=== PATIENT | male | born 2000 | race Caucasian/White ===

== ENCOUNTER 2021-08-03 10:21 | Inpatient (IN) | payer MEDICAID ==
[2021-08-03 10:49] LABS: Basophils % (A) 0 %; Eosinophils # (A) 0.1 k/uL (0-0.7); Eosinophils % (A) 2 %; HCT 44.6 % (39.0-53.0); HGB 15.2 gm/dL (13.0-17.5); Lymphocytes # (A) 1.1 k/uL (1.0-4.8); Lymphocytes % (A) 15 %; MCV 88.1 fL (80.0-100.0); Mean Platelet Volume 7.7; Monocytes # (A) 0.4 k/uL (0-1.0); Monocytes % (A) 5 %; Neutrophils # (A) 5.8 k/uL (1.3-7.7); Neutrophils % (A) 77 %; Platelet Count 247 k/uL (150-450); RBC 5.06 m/uL (4.30-5.90); RDW 12.8 % (11.5-15.5); WBC 7.6 k/uL (3.8-10.6)
[2021-08-03 11:00] LABS: ALT 16 U/L (4-49); AST 33 U/L (17-59); African American GFR (CKD) >90 (>60 ml/min/1.73 sqM); Albumin 5.2 g/dL (3.5-5.0); Alkaline Phosphatase 57 U/L (38-126); Anion Gap 14 mmol/L; Blood Urea Nitrogen 12 mg/dL (9-20); Calcium 9.9 mg/dL (8.4-10.2); Carbon Dioxide 20 mmol/L (22-30); Chloride 103 mmol/L (98-107); Glucose 117 mg/dL (74-99); Non-African American GFR(CKD) >90 (>60 ml/min/1.73 sqM); Potassium 3.9 mmol/L (3.5-5.1); Sodium 137 mmol/L (137-145); Total Bilirubin 0.9 mg/dL (0.2-1.3); Total Protein 8.8 g/dL (6.3-8.2)
[2021-08-03 11:08] LABS: Amphetamine Screen,Urine Not Detected (NotDetected); Barbiturate Screen,Urine Not Detected (NotDetected); Benzodiazepines Screen,Urine Not Detected (NotDetected); Cocaine Screen,Urine Not Detected (NotDetected); Methadone Screen, Urine Not Detected (NotDetected); Opiate Screen,Urine Detected (NotDetected); Oxycodone Screen, Urine Not Detected (NotDetected); Phencyclidine Screen,Urine Not Detected (NotDetected); Tricyclic Antidepressant,Urine Not Detected (NotDetected); Urn Cannabinoid Scrn Detected (NotDetected)
[2021-08-03 11:11] LABS: Acetaminophen <10.0 ug/mL; Salicylate <1.0 mg/dL
--- NOTE | 2021-08-03 11:20 | ED ---
Psych HPI - General Chief Complaint: Psychiatric Symptoms Stated Complaint: Mental health eval Time Seen by Provider: 08/03/21 10:22 Source: patient, RN notes reviewed Mode of arrival: EMS - History of Present Illness Initial Comments: 21-year-old male presents emergency department for psychiatric evaluation. Patient states that she is very depressed, suicidal. Patient did attempt to overdose on Saturday and which she states that he took partially 15 [place] and drink some alcohol on Saturday. Patient experienced vomiting, stomach. Patient states that has resolved. Patient states he still depressed, suicidal does admit to marijuana use. Patient denies any chest pain shortness breath. Shows normal a cough and cold like symptoms. - Related Data Allergies Allergy/AdvReac Type Severity Reaction Status Date / Time No Known Allergies Allergy Verified 08/03/21 10:33 Review of Systems ROS Statement: Those systems with pertinent positive or pertinent negative responses have been documented in the HPI. ROS Other: All systems not noted in ROS Statement are negative. Past Medical History Past Medical History: No Reported History History of Any Multi-Drug Resistant Organisms: None Reported Past Surgical History: No Surgical Hx Reported Past Psychological History: No Psychological Hx Reported Smoking Status: Former smoker Past Alcohol Use History: Occasional Past Drug Use History: Marijuana General Exam Limitations: no limitations General appearance: alert, in no apparent distress Head exam: Present: atraumatic, normocephalic, normal inspection Eye exam: Present: normal appearance, PERRL, EOMI. Absent: scleral icterus, conjunctival injection, periorbital swelling ENT exam: Present: normal exam, normal oropharynx, mucous membranes moist Neck exam: Present: normal inspection, full ROM. Absent: tenderness, meningismus, lymphadenopathy Respiratory exam: Present: normal lung sounds bilaterally. Absent: respiratory distress, wheezes, rales, rhonchi, stridor Cardiovascular Exam: Present: normal rhythm, tachycardia, normal heart sounds. Absent: systolic murmur, diastolic murmur, rubs, gallop, clicks GI/Abdominal exam: Present: soft, normal bowel sounds. Absent: distended, tenderness, guarding, rebound, rigid Neurological exam: Present: alert Psychiatric exam: Present: depressed Course Vital Signs 08/03/21 08/03/21 10:29 11:30 Temperature 98.1 F Pulse Rate 109 H Respiratory 16 18 Rate Blood Pressure 171/93 O2 Sat by Pulse 97 Oximetry Medical Decision Making - Medical Decision Making Patient evaluated by EPS will be admitted for psychiatric treatment. - Lab Data Result diagrams: 08/03/21 10:38 08/03/21 10:38 Lab Results 08/03/21 08/03/21 08/03/21 Range/Units 10:38 10:38 10:38 WBC 7.6 (3.8-10.6) k/uL RBC 5.06 (4.30-5.90) m/uL Hgb 15.2 (13.0-17.5) gm/dL Hct 44.6 (39.0-53.0) % MCV 88.1 (80.0-100.0) fL MCH 30.0 (25.0-35.0) pg MCHC 34.0 (31.0-37.0) g/dL RDW 12.8 (11.5-15.5) % Plt Count 247 (150-450) k/uL MPV 7.7 Neutrophils % 77 % Lymphocytes % 15 % Monocytes % 5 % Eosinophils % 2 % Basophils % 0 % Neutrophils # 5.8 (1.3-7.7) k/uL Lymphocytes # 1.1 (1.0-4.8) k/uL Monocytes # 0.4 (0-1.0) k/uL Eosinophils # 0.1 (0-0.7) k/uL Basophils # 0.0 (0-0.2) k/uL Sodium 137 (137-145) mmol/L Potassium 3.9 (3.5-5.1) mmol/L Chloride 103 (98-107) mmol/L Carbon Dioxide 20 L (22-30) mmol/L Anion Gap 14 mmol/L BUN 12 (9-20) mg/dL Creatinine 1.13 (0.66-1.25) mg/dL Est GFR (CKD-EPI)AfAm >90 (>60 ml/min/1.73 sqM) Est GFR (CKD-EPI)NonAf >90 (>60 ml/min/1.73 sqM) Glucose 117 H (74-99) mg/dL Calcium 9.9 (8.4-10.2) mg/dL Total Bilirubin 0.9 (0.2-1.3) mg/dL AST 33 (17-59) U/L ALT 16 (4-49) U/L Alkaline Phosphatase 57 (38-126) U/L Total Protein 8.8 H (6.3-8.2) g/dL Albumin 5.2 H (3.5-5.0) g/dL Salicylates <1.0 mg/dL Urine Opiates Screen Detected H (NotDetected) Ur Oxycodone Screen Not Detected (NotDetected) Urine Methadone Screen Not Detected (NotDetected) Ur Propoxyphene Screen Not Detected (NotDetected) Acetaminophen <10.0 ug/mL Ur Barbiturates Screen Not Detected (NotDetected) U Tricyclic Antidepress Not Detected (NotDetected) Ur Phencyclidine Scrn Not Detected (NotDetected) Ur Amphetamines Screen Not Detected (NotDetected) U Methamphetamines Scrn Not Detected (NotDetected) U Benzodiazepines Scrn Not Detected (NotDetected) Urine Cocaine Screen Not Detected (NotDetected) U Marijuana (THC) Screen Detected H (NotDetected) Disposition Clinical Impression: Depression, Suicidal ideation Disposition: TRANSFER TO PSYCH HOSP/UNIT Referrals: None,Stated [Primary Care Provider] - 1-2 days
[2021-08-03 11:34] VITALS: RESP 18
[2021-08-03] MEDS ORDERED: LORazepam 1 MG TAB PO PRN (14:58)
[2021-08-03] MEDS ORDERED: HALOPERIDOL LACTATE 5 MG/ML 1 ML VIAL IM PRN (14:58)
[2021-08-03] MEDS ORDERED: MAGNESIUM HYDROXIDE 2,400 MG/10 ML CUP PO PRN (14:58)
[2021-08-03] MEDS ORDERED: MAG HYDROX/AL HYDROX/SIMETH 30 ML CUP PO PRN (14:58)
[2021-08-03] MEDS ORDERED: haloperidoL 5 MG TAB PO PRN (15:02)
[2021-08-03] MEDS ORDERED: LORazepam 2 MG/ML INJ IM PRN (15:02)
[2021-08-03] MEDS ORDERED: IBUPROFEN 600 MG TAB PO PRN (15:03)
--- NOTE | 2021-08-04 03:55 | P.CONS ---
History of Present Illness - Reason for Consult Consult date: 08/04/21 - History of Present Illness The patient is a 21-year-old male with a PMH of tobacco abuse and marijuana abuse quit presented to the emergency room with complaints of depression and suicidal ideation. The patient was admitted to the mental health unit where he was seen and evaluated. Patient reports that he tried to overdose by taking 15 tablets of [place] that he had leftover from when he underwent a right shoulder surgery a few years ago. He notes he subsequently slept for 24 hours and woke up without incident. He was guarded during the interview and refused to disclose the reasons for his depression. Denied any additional complaints at the time of interview. He denied chest discomfort, shows a cough, chills, cough, nausea, vomiting, abdominal pain, diarrhea. He reported using marijuana daily and smoking a few cigarettes per day. Denied any additional substances. Laboratory evaluation was reviewed. Review of systems: Pertinent positives and negatives as discussed in HPI, a complete review of systems was performed and all other systems are negative. Physical examination: General: non toxic, no distress, appears at stated age, obese Derm: no unusual rashes/lesions no unusual ecchymoses, warm, dry Head: atraumatic, normocephalic, symmetric Eyes: EOMI, no lid lag, anicteric sclera, pupils equal round reactive to light ENT: Nose and ears atraumatic, no thrush, no pharyngeal erythema Neck: No thyromegaly, no cervical lymphadenopathy, trachea midline, supple Mouth: no lip lesion, mucus membranes moist Cardiovascular: S1S2 reg, no murmur, positive posterior tibial pulse bilateral, no edema, capillary refill less than 2 seconds Lungs: CTA bilateral, no rhonchi, no rales , no accessory muscle use Abdominal: soft, nontender to palpation, no guarding, no appreciable organomegaly, normal bowel sounds Ext: no gross muscle atrophy, muscle strength 5 out of 5 in all 4 extremities grossly, no contractures, Neuro: CN II-XI grossly intact, light touch intact all 4 extremities, finger to nose within normal limits, Psych: Alert, oriented, appropriate affect Assessment/plan Marijuana and tobacco abuse -Advised on the importance of cessation Depression and suicidal ideation -As per psychiatry Thank you for allowing us to participate in the care of this patient. We will follow peripherally. Do not hesitate to contact us with questions. Someone can be reached from the [facility] hospitalist group at all hours of the day at [phone]. Past Medical History Past Medical History: No Reported History History of Any Multi-Drug Resistant Organisms: None Reported Past Surgical History: No Surgical Hx Reported Past Psychological History: No Psychological Hx Reported Smoking Status: Never smoker Past Alcohol Use History: Occasional Past Drug Use History: Marijuana - Past Family History Mother Family Medical History: Hypertension Medications and Allergies Home Medications Medication Instructions Recorded Confirmed Type No Known Home Medications 08/03/21 08/03/21 History Allergies Allergy/AdvReac Type Severity Reaction Status Date / Time No Known Allergies Allergy Verified 08/03/21 17:10 Physical Exam Vitals: Vital Signs Temp Pulse Pulse Resp BP BP Pulse Ox 08/03/21 15:50 97.6 F 79 18 142/76 98 08/03/21 15:42 98.5 F 93 18 154/83 96 08/03/21 14:00 18 08/03/21 13:00 18 08/03/21 11:30 18 08/03/21 10:29 98.1 F 109 H 16 171/93 97 Intake and Output 08/03/21 08/03/21 08/04/21 14:59 22:59 06:59 Other: Weight 108 kg Results CBC & Chem 7: 08/03/21 10:38 08/03/21 10:38 Labs: Abnormal Lab Results - Last 24 Hours (Table) 08/03/21 08/03/21 Range/Units 10:38 10:38 Carbon Dioxide 20 L (22-30) mmol/L Glucose 117 H (74-99) mg/dL Total Protein 8.8 H (6.3-8.2) g/dL Albumin 5.2 H (3.5-5.0) g/dL Urine Opiates Screen Detected H (NotDetected) U Marijuana (THC) Screen Detected H (NotDetected)
--- NOTE | 2021-08-05 11:31 | P.HP ---
Psychiatric H&P - . History & Physical: Allergies Allergy/AdvReac Type Severity Reaction Status Date / Time No Known Allergies Allergy Verified 08/03/21 17:10 Vital Signs Temp 98.5 F 08/04/21 10:25 Pulse 94 08/04/21 10:25 Resp 18 08/04/21 10:25 BP 135/95 08/04/21 10:25 Pulse Ox 98 08/04/21 10:25 Intake & Output 08/03/21 08/04/21 08/04/21 18:59 06:59 18:59 Weight 108 kg Laboratory Last Values WBC 7.6 k/uL (3.8-10.6) 08/03/21 10:38 RBC 5.06 m/uL (4.30-5.90) 08/03/21 10:38 Hgb 15.2 gm/dL (13.0-17.5) 08/03/21 10:38 Hct 44.6 % (39.0-53.0) 08/03/21 10:38 MCV 88.1 fL (80.0-100.0) 08/03/21 10:38 MCH 30.0 pg (25.0-35.0) 08/03/21 10:38 MCHC 34.0 g/dL (31.0-37.0) 08/03/21 10:38 RDW 12.8 % (11.5-15.5) 08/03/21 10:38 Plt Count 247 k/uL (150-450) 08/03/21 10:38 MPV 7.7 08/03/21 10:38 Neutrophils % 77 % 08/03/21 10:38 Lymphocytes % 15 % 08/03/21 10:38 Monocytes % 5 % 08/03/21 10:38 Eosinophils % 2 % 08/03/21 10:38 Basophils % 0 % 08/03/21 10:38 Neutrophils # 5.8 k/uL (1.3-7.7) 08/03/21 10:38 Lymphocytes # 1.1 k/uL (1.0-4.8) 08/03/21 10:38 Monocytes # 0.4 k/uL (0-1.0) 08/03/21 10:38 Eosinophils # 0.1 k/uL (0-0.7) 08/03/21 10:38 Basophils # 0.0 k/uL (0-0.2) 08/03/21 10:38 Sodium 137 mmol/L (137-145) 08/03/21 10:38 Potassium 3.9 mmol/L (3.5-5.1) 08/03/21 10:38 Chloride 103 mmol/L (98-107) 08/03/21 10:38 Carbon Dioxide 20 mmol/L (22-30) L 08/03/21 10:38 Anion Gap 14 mmol/L 08/03/21 10:38 BUN 12 mg/dL (9-20) 08/03/21 10:38 Creatinine 1.13 mg/dL (0.66-1.25) 08/03/21 10:38 Est GFR (CKD-EPI)AfAm >90 (>60 ml/min/1.73 sqM) 08/03/21 10:38 Est GFR (CKD-EPI)NonAf >90 (>60 ml/min/1.73 sqM) 08/03/21 10:38 Glucose 117 mg/dL (74-99) H 08/03/21 10:38 Calcium 9.9 mg/dL (8.4-10.2) 08/03/21 10:38 Total Bilirubin 0.9 mg/dL (0.2-1.3) 08/03/21 10:38 AST 33 U/L (17-59) 08/03/21 10:38 ALT 16 U/L (4-49) 08/03/21 10:38 Alkaline Phosphatase 57 U/L (38-126) 08/03/21 10:38 Total Protein 8.8 g/dL (6.3-8.2) H 08/03/21 10:38 Albumin 5.2 g/dL (3.5-5.0) H 08/03/21 10:38 TSH 3.600 mIU/L (0.465-4.680) 08/03/21 10:28 Salicylates <1.0 mg/dL 08/03/21 10:38 Urine Opiates Screen Detected (NotDetected) H 08/03/21 10:38 Ur Oxycodone Screen Not Detected (NotDetected) 08/03/21 10:38 Urine Methadone Screen Not Detected (NotDetected) 08/03/21 10:38 Ur Propoxyphene Screen Not Detected (NotDetected) 08/03/21 10:38 Acetaminophen <10.0 ug/mL 08/03/21 10:38 Ur Barbiturates Screen Not Detected (NotDetected) 08/03/21 10:38 U Tricyclic Antidepress Not Detected (NotDetected) 08/03/21 10:38 Ur Phencyclidine Scrn Not Detected (NotDetected) 08/03/21 10:38 Ur Amphetamines Screen Not Detected (NotDetected) 08/03/21 10:38 U Methamphetamines Scrn Not Detected (NotDetected) 08/03/21 10:38 U Benzodiazepines Scrn Not Detected (NotDetected) 08/03/21 10:38 Urine Cocaine Screen Not Detected (NotDetected) 08/03/21 10:38 U Marijuana (THC) Screen Detected (NotDetected) H 08/03/21 10:38 Coronavirus (PCR) Not Detected (Not Detectd) 08/03/21 12:49 08/05/21 11:29 chief cmplaint; Suicidal depresson and inability to cope
--- NOTE | 2021-08-05 13:12 | P.PN ---
Progress Note - Text Progress Note Date: 08/05/21 Interval History: Patient was seen wandering the hallways and was directable and agreeable to speak with health technical writer in the office. 21-year-old male presents emergency department for psychiatric evaluation. Patient states that she is very depressed, suicidal. Patient did attempt to overdose on Saturday and which she states that he took partially 15 [place] and drink some alcohol on Saturday. Patient experienced vomiting, stomach. Patient states that has resolved. Patient states he still depressed, suicidal does admit to marijuana use. Patient denies any auditory, visual hallucinations and denies any paranoia or delusions. Patient denies any side effects from the medications and has been compliant with meds. Mental Status Exam: General Appearance: Patient appears to be stated age is alert, directable, and cooperative. Behavior: Patient is calmly seated without any agitated behavior. Speech: Patient's speech is fluent and nonpressured. Mood/Affect: Mood is improving mildly, affect is congruent and constricted. Suicidality/Homicidality: Patient continues to have fleeting suicidal thoughts. Perceptions: Patient denies any visual hallucinations and denies any auditory hallucinations Though content/process: There is no evidence of any delusional thought content and thought process is linear and goal-directed. Memory and concentration: AOX3, grossly intact for the purposes of this session Judgment and insight: Improving mildly Assessment Patient continues to maintain status quo and necessitates the hospitalization to help him with his depression and suicidality. Plan: -Patient continues to meet criteria for inpatient psychiatric admission for symptom stabilization and safety. -Medications: Continue medication as before -When necessary Ativan and Haldol for agitation/aggression. -SW on board for discharge planning. Encouraged the patient to participate in milieu.
--- NOTE | 2021-08-05 14:59 | P.HP ---
Psychiatric H&P - . H&P Date: 08/04/21 History & Physical: Allergies Allergy/AdvReac Type Severity Reaction Status Date / Time No Known Allergies Allergy Verified 08/03/21 17:10 Vital Signs Temp 98.5 F 08/04/21 10:25 Pulse 94 08/04/21 10:25 Resp 18 08/04/21 10:25 BP 135/95 08/04/21 10:25 Pulse Ox 98 08/04/21 10:25 Intake & Output 08/03/21 08/04/21 08/04/21 18:59 06:59 18:59 Weight 108 kg Laboratory Last Values WBC 7.6 k/uL (3.8-10.6) 08/03/21 10:38 RBC 5.06 m/uL (4.30-5.90) 08/03/21 10:38 Hgb 15.2 gm/dL (13.0-17.5) 08/03/21 10:38 Hct 44.6 % (39.0-53.0) 08/03/21 10:38 MCV 88.1 fL (80.0-100.0) 08/03/21 10:38 MCH 30.0 pg (25.0-35.0) 08/03/21 10:38 MCHC 34.0 g/dL (31.0-37.0) 08/03/21 10:38 RDW 12.8 % (11.5-15.5) 08/03/21 10:38 Plt Count 247 k/uL (150-450) 08/03/21 10:38 MPV 7.7 08/03/21 10:38 Neutrophils % 77 % 08/03/21 10:38 Lymphocytes % 15 % 08/03/21 10:38 Monocytes % 5 % 08/03/21 10:38 Eosinophils % 2 % 08/03/21 10:38 Basophils % 0 % 08/03/21 10:38 Neutrophils # 5.8 k/uL (1.3-7.7) 08/03/21 10:38 Lymphocytes # 1.1 k/uL (1.0-4.8) 08/03/21 10:38 Monocytes # 0.4 k/uL (0-1.0) 08/03/21 10:38 Eosinophils # 0.1 k/uL (0-0.7) 08/03/21 10:38 Basophils # 0.0 k/uL (0-0.2) 08/03/21 10:38 Sodium 137 mmol/L (137-145) 08/03/21 10:38 Potassium 3.9 mmol/L (3.5-5.1) 08/03/21 10:38 Chloride 103 mmol/L (98-107) 08/03/21 10:38 Carbon Dioxide 20 mmol/L (22-30) L 08/03/21 10:38 Anion Gap 14 mmol/L 08/03/21 10:38 BUN 12 mg/dL (9-20) 08/03/21 10:38 Creatinine 1.13 mg/dL (0.66-1.25) 08/03/21 10:38 Est GFR (CKD-EPI)AfAm >90 (>60 ml/min/1.73 sqM) 08/03/21 10:38 Est GFR (CKD-EPI)NonAf >90 (>60 ml/min/1.73 sqM) 08/03/21 10:38 Glucose 117 mg/dL (74-99) H 08/03/21 10:38 Calcium 9.9 mg/dL (8.4-10.2) 08/03/21 10:38 Total Bilirubin 0.9 mg/dL (0.2-1.3) 08/03/21 10:38 AST 33 U/L (17-59) 08/03/21 10:38 ALT 16 U/L (4-49) 08/03/21 10:38 Alkaline Phosphatase 57 U/L (38-126) 08/03/21 10:38 Total Protein 8.8 g/dL (6.3-8.2) H 08/03/21 10:38 Albumin 5.2 g/dL (3.5-5.0) H 08/03/21 10:38 TSH 3.600 mIU/L (0.465-4.680) 08/03/21 10:28 Salicylates <1.0 mg/dL 08/03/21 10:38 Urine Opiates Screen Detected (NotDetected) H 08/03/21 10:38 Ur Oxycodone Screen Not Detected (NotDetected) 08/03/21 10:38 Urine Methadone Screen Not Detected (NotDetected) 08/03/21 10:38 Ur Propoxyphene Screen Not Detected (NotDetected) 08/03/21 10:38 Acetaminophen <10.0 ug/mL 08/03/21 10:38 Ur Barbiturates Screen Not Detected (NotDetected) 08/03/21 10:38 U Tricyclic Antidepress Not Detected (NotDetected) 08/03/21 10:38 Ur Phencyclidine Scrn Not Detected (NotDetected) 08/03/21 10:38 Ur Amphetamines Screen Not Detected (NotDetected) 08/03/21 10:38 U Methamphetamines Scrn Not Detected (NotDetected) 08/03/21 10:38 U Benzodiazepines Scrn Not Detected (NotDetected) 08/03/21 10:38 Urine Cocaine Screen Not Detected (NotDetected) 08/03/21 10:38 U Marijuana (THC) Screen Detected (NotDetected) H 08/03/21 10:38 Coronavirus (PCR) Not Detected (Not Detectd) 08/03/21 12:49 08/05/21 14:35 Chief complaint: Drug overdose HPI; With no previous psychiatric admission, he showed up at the [facility] after he overdosed with 15-18 [place] two days ago. He admitted he was overwhelmed with the stressor: financial and work-related transition. He has recently switched from [employer] to [employer]. HE cited his ability to cope with the stressor to be the major factor. He was also behind his rental payment. He did not experience interpersonal loss; he described relationship with his female friend to be positive. He related to his suicidal attempt not as a way of ending his life. 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 He denied cluster of PTSD symptoms When asked whethe he exhibited alcohol use problem, he denied he was a regular drinker. He failed to explain why he coupled his overdose with Alcohol. no history of drug abuse. past psychiatric history: No previous drug overdose NO psychiatric admission past medical History: uneventful. Past psychosocial history: he did not elaborate much on his family background. He did not provide family history of psychiatric disorder or substance use history. stigma of mental illness was inferred from his hesitancy. Mental status Examination He approached me in a highly courteous manner with downcast eyes and somewhat perplexed facial expression. He spoke in a rather soft tone of voice and conducted the interview with no facial mask. He did not have COVID19 vaccine but considered he would be prepared to follow through. He denied he was anxious and frightened of the virus spread. Psychomotor retardation was evident with blunted and sad affect, with constricted range. No delusion of guilt. He was peoccupied with his job loss and his financial responsibilities. No hallucinations. He stated he no longer harboured any suicidal or homicidal ideation. Cognition: fully oriented. absent insight and judgment. 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 differential : vicarious PTSD : pare-med. Dysthymia may be another comorbid disorder Management: he was encouraged to stay and to follow through with the treatment . He was willing to be started on mirtazepine 15 mg po qhs increasing to 30 mg po qhs Follow up with behav. health essential screening for PTSD. Refer to community behav. health counselling center
[2021-08-05] MEDS: MIRTAZAPINE 15 MG TAB PO SCH (20:52)
--- NOTE | 2021-08-06 12:19 | P.PN ---
Progress Note - Text Progress Note Date: 08/06/21 Interval History: Patient was seen in the dayroom and was directable and agreeable to speak with video game script writer. This patient stated that the he is feeling better now and he is just feeling tired since last night. He denies any symptoms of depression. This patient was admitted to Hospital with a overdose of opiates. At this time patient denies any suicidal or homical ideations, intent or plan. Patient denies any auditory, visual hallucinations and denies any paranoia or delusions. Patient denies any side effects from the medications and has been compliant with meds. Mental Status Exam: General Appearance: Patient appears to be stated age is alert, directable, and cooperative. Behavior: Patient is calm without any agitated behavior. Speech: Patient's speech is fluent and nonpressured. Mood/Affect: Mood is improving mildly, affect is congruent and constricted. Suicidality/Homicidality: Patient denies having any suicidal or homicidal ideation intent or plan. Perceptions: Patient denies any visual hallucinations and denies any auditory hallucinations Though content/process: There is no evidence of any delusional thought content and thought process is linear and goal-directed. Memory and concentration: AOX3, grossly intact for the purposes of this session Judgment and insight: Improving mildly Assessment Patient with no previous psychiatric admission, he showed up at the [facility] after he overdosed with 15-18 [place].He related to his suicidal attempt not as a way of ending his life. He still has a poor insight and his judgment is impaired as well. Plan: -Patient continues to meet criteria for inpatient psychiatric admission for symptom stabilization and safety. -Medications: Continue medication as before -When necessary Ativan and Haldol for agitation/aggression. -SW on board for discharge planning. Encouraged the patient to participate in milieu.
[2021-08-06] MEDS: MIRTAZAPINE 15 MG TAB PO SCH (21:22)
[2021-08-07 06:23] VITALS: BP 129/75; PULSE 82; TEMP 97.3
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
[2021-08-08] MEDS ORDERED: MIRTAZAPINE 15 MG TAB PO SCH (09:00)
== END 2021-08-07 14:45 | disposition home or self-care (01) | DRG 885 ==
LOC: EC 10:21 → 3MHU 14:45
PROVIDERS: ADMIT Psychiatry & Neurology Psychiatry; ATTEND Psychiatry & Neurology Psychiatry
DX: F32.1 Major depressive disorder, single episode, moderate (principal); R45.851 Suicidal ideations; Z20.822 Contact with and (suspected) exposure to COVID-19; F12.10 Cannabis abuse, uncomplicated; G89.18 Other acute postprocedural pain; F17.210 Nicotine dependence, cigarettes, uncomplicated; Z71.6 Tobacco abuse counseling; Z91.51 Personal history of suicidal behavior; Z82.49 Family history of ischemic heart disease and other diseases of the circulatory system
CPT/HCPCS: 36415; 80053; 80143; 80179; 80306; 82075; 84443; 85025; 87635; 99285